=== PATIENT | male | born 1985 | race Caucasian/White ===

== ENCOUNTER 2017-09-01 07:53 | Day surgery (SDC) | payer BC ==
[2017-08-26 14:13] VITALS: BMI 32.5
[~2017-09-01 07:53] MED LIST: LACTATED RINGERS 1,000 ML IV SCH; LIDOCAINE 1% 20 ML VIAL (10MG/ML) FOR IV START INTRADERMA PRN
[2017-09-01 08:21] VITALS: TEMP 97.9
[2017-09-01] MEDS ORDERED: PROPOFOL 10 MG/ML 20 ML VIAL IV ONE (08:39)
--- NOTE | 2017-09-01 08:43 | P.GSHP ---
History of Present Illness H&P Date: 09/01/17 Chief Complaint: Rectal pain, constipation, GI bleed [id number] male who presents today for colonoscopy. Patient's had complaints of change in bowel habits. He's had some issues of constipation and rectal pain. He's had some intermittent rectal bleeding he notices blood in the 12 liver when he cleaned himself. Past Medical History Additional Past Medical History / Comment(s): CHANGE IN BOWEL HABITS History of Any Multi-Drug Resistant Organisms: None Reported Past Surgical History: Orthopedic Surgery Additional Past Surgical History / Comment(s): RT SCL REPAIR Past Anesthesia/Blood Transfusion Reactions: Postoperative Nausea & Vomiting ( PONV) Additional Past Anesthesia/Blood Transfusion Reaction / Comment(s): HAD TROUBLE VOIDING AFTER ACL REPAIR Smoking Status: Current every day smoker - Past Family History Mother Family Medical History: Pulmonary Embolus Medications and Allergies Home Medications Medication Instructions Recorded Confirmed Type No Known Home Medications 08/26/17 09/01/17 History Allergies Allergy/AdvReac Type Severity Reaction Status Date / Time No Known Allergies Allergy Verified 09/01/17 08:13 Surgical - Exam Vital Signs Temp Pulse BP Pulse Ox 97.9 F 90 135/78 96 09/01/17 08:19 09/01/17 08:19 09/01/17 08:19 09/01/17 08:19 - General well developed, no distress - Eyes PERRL - ENT normal pinna - Neck no masses - Respiratory normal expansion - Cardiovascular Rhythm: regular - Abdomen Abdomen: soft, non tender Assessment and Plan Assessment: GI bleed, rectal pain, change in bowel habits. We'll perform colonoscopy.
--- NOTE | 2017-09-01 08:54 | P.OP ---
Date of Procedure: 09/01/17 Preoperative Diagnosis: Change in bowel habits GI bleed Rectal pain Postoperative Diagnosis: Diverticulosis Internal hemorrhoids Procedure(s) Performed: Colonoscopy Anesthesia: MAC Surgeon: Ambrosio Maddox Pathology: none sent Condition: stable Disposition: PACU Description of Procedure: The patient's placed on the endoscopy table in the lateral position. He received IV sedation. Digital rectal exam is performed which revealed internal hemorrhoids. The flexible colonoscope was then placed patient anus passed throughout the entire colon. The ileocecal valve was visualized. The cecum, ascending and transverse colon appeared normal. The descending colon appeared normal. In the sigmoid colon was a few scattered diverticuli. The scope was then brought back the rectum and this appeared normal. Scope was withdrawn for patient.
[2017-09-01 09:01] VITALS: RESP 16
[2017-09-01 09:17] VITALS: BP 109/68; PULSE 72
== END 2017-09-01 10:19 | disposition home or self-care (01) ==
LOC: ORWHC2ENDO 07:53
PROVIDERS: ATTEND Surgery
DX: K57.30 Diverticulosis of large intestine without perforation or abscess without bleeding (principal); K62.5 Hemorrhage of anus and rectum; K64.8 Other hemorrhoids; F17.210 Nicotine dependence, cigarettes, uncomplicated
CPT/HCPCS: 45378; J2704